=== PATIENT | female | born 1960 | race Caucasian/White ===

== ENCOUNTER → 2016-04-15 | Outpatient (REF) | payer OTHER ==
[2016-04-15 11:46] LABS: BASO % 0.3 % (0.0-1.0); EOS # 0.1 K/mm3 (0.0-0.50); EOS % 1.5 % (0.0-3.0); LARGE UNSTAINED CELL # 0.1 K/mm3 (0.0-0.4); LARGE UNSTAINED CELL % 2.9 % (0.0-4.0); LYMPH # 1.3 K/mm3 (1.5-4.5); LYMPH % 27.3 % (24.0-44.0); MEAN CORPUSCULAR HGB CONC 34.3 g/dl (32.0-36.5); MEAN CORPUSCULAR VOLUME 93.4 fl (80.0-96.0); MONO # 0.4 K/mm3 (0.0-0.8); MONO % 7.5 % (0.0-5.0); NEUTROPHILS # 2.8 K/mm3 (1.8-7.7); NEUTROPHILS % 60.5 % (36.0-66.0); PLATELET COUNT, AUTOMATED 163 k/mm3 (150-450); RED CELL DISTRIBUTION WIDTH 11.6 % (11.5-14.5); WHITE BLOOD COUNT 4.6 K/mm3 (4.0-10.0)
[2016-04-15 12:00] LABS: ALBUMIN/GLOBULIN RATIO 1.08 (1.00-1.93); ALKALINE PHOSPHATASE 56 U/L (45-117); ALT/SGPT 76 U/L (12-78); ANION GAP 9 MEQ/L (8-16); AST/SGOT 54 U/L (15-37); BILIRUBIN,TOTAL 0.5 MG/DL (0.2-1.0); BLOOD UREA NITROGEN 14 MG/DL (7-18); CALCIUM LEVEL 8.9 MG/DL (8.5-10.1); CARBON DIOXIDE LEVEL 27 MEQ/L (21-32); CHLORIDE LEVEL 106 MEQ/L (98-107); CHOLESTEROL LEVEL 158 MG/DL (<200); CREATININE FOR GFR 0.83 MG/DL (0.55-1.02); GLOMERULAR FILTRATION RATE > 60.0 (>51); GLUCOSE, FASTING 86 MG/DL (70-105); POTASSIUM SERUM 4.2 MEQ/L (3.5-5.1); SODIUM LEVEL 142 MEQ/L (136-145); TOTAL PROTEIN 7.7 GM/DL (6.4-8.2); TRIGLYCERIDES LEVEL 63 MG/DL (<150)
[2016-04-15 12:06] LABS: HEPATITIS B SURFACE ANTIBODY NEGATIVE (POSITIVE)
[2016-04-17 08:07] LABS: ALT 75 IU/L (0-40); GGT 104 IU/L (0-60); HAPTOGLOBIN 74 mg/dL (34-200); NECROINFLAM SCORE 0.54 (0.00-0.17); NECROINFLAMM GRADE A2-Moderate activity (.); TOTAL BILIRUBIN 0.4 mg/dL (0.0-1.2)
[2016-04-18 00:06] LABS: HEPATITIS C QUANTITATION 5324780 IU/mL (.); HEPATITIS C VIRUS GENOTYPE 1b (.)
== END ==
LOC: M SFHCPLAZ 09:38
PROVIDERS: ATTEND Internal Medicine Infectious Disease
DX: Z13.220 Encounter for screening for lipoid disorders (principal); B18.2 Chronic viral hepatitis C

== ENCOUNTER 2016-05-08 23:32 | Emergency (ER) | payer OTHER ==
[2016-05-09] MEDS ORDERED: ONDANSETRON 4MG/2ML VIAL (J2405) As Ordered ONE (00:21)
[2016-05-09] MEDS ORDERED: MORPHINE 4 MG/ML 1ML SYRINGE As Ordered ONE ×2 (00:21→01:47)
[2016-05-09] MEDS ORDERED: KETAMINE HCL 200 MG/20 ML VIAL As Ordered ONE (01:18)
[2016-05-09] MEDS ORDERED: PROPOFOL 200 MG/20 ML VIAL As Ordered ONE (01:18)
[2016-05-09] MEDS ORDERED: NORCO 5/325MG TABLET (BULK) As Ordered ONE (02:50)
--- NOTE | 2016-05-09 02:59 | EDDOCDS ---
Nurse's Notes [facility] Name: Vivek Galdamez Age: 55 yrs Sex: Female : 1960 Arrival Date: 05/08/2016 Time: 23:32 Bed 1 Private MD: Diagnosis: Dislocation and sprain of joints and ligaments of elbow;Fracture of head of radius Presentation: 05/08 23:37 Presenting complaint: Patient states: Patient was at bar, had a couple of drinks, on jmb way home, fell hit left elbow. Patient reports that she had three glasses of vodka. Refused pain medication x 3. Adult Sepsis Screening: The patient does not have new or worsening altered mentation. Patient's respiratory rate is less than 22. Systolic blood pressure is greater than 100. Patient has a qSOFA score of 0- Negative Sepsis Screen. Suicide/Homicide risk assessment- the patient denies having any suicidal and/or homicidal ideations and does not present with any other emotional, behavioral or mental health complaints. Status: Patient is not a director of tax services or dependent. Transition of care: patient was not received from another setting of care. 23:37 Acuity: ZHANG Level 3 [facility] 23:37 Method Of Arrival: Ambulance [facility] Triage Assessment: 23:41 General: Appears uncomfortable, Behavior is restless. Pain: Location: left arm Pain [facility] currently is 7 out of 10 on a pain scale. HIV screening NA for this visit Offered previously. Neurological: Level of Consciousness is awake, alert, obeys commands, Oriented to person, place, time, Speech is normal, Facial symmetry appears normal, Facial symmetry: tongue is midline. Cardiovascular: Capillary refill < 3 seconds Heart tones S1 S2 present Pulses are all present. Rhythm is regular. Respiratory: Airway is patent Respiratory effort is even, unlabored, Respiratory pattern is regular, Breath sounds are clear bilaterally. GI: Abdomen is non- distended. Derm: Skin is pink, warm & dry. Musculoskeletal: Range of motion limited in left shoulder, left elbow and left wrist. Historical: - Allergies: No known drug Allergies; - Home Meds: 1. Zoloft 50 mg Oral tab 1 tab once daily 2. Wellbutrin Unknown Oral 3. Klonopin 0.5 mg Oral tab 1 tab 2 times per day - PMHx: Depression; Anxiety; - PSHx: none; - Social history: Smoking status: Patient states former smoker of tobacco. Patient uses alcohol patient/guardian reports recent binge of alcohol consumption. No barriers to communication noted, The patient speaks fluent Swazi, Speaks appropriately for age. - Family history: Not pertinent. - : The pt / caregiver states he / she is not on anticoagulants. Home medication list is obtained from the patient. - Exposure Risk Screening:: None identified. Screenin/18 00:40 Screening information is obtained from the patient. Fall risk: At risk due to apparent jmb chemical impairment. Assistance ADL's: requires no assistance with activities of daily living. Abuse/DV Screen: The patient / caregiver reports he/she is: not in a situation that causes fear, pain or injury. Nutritional screening: No deficits noted. home support is adequate. 02:20 Advance Directives: Currently, there is no health care proxy. There is no active DNR jmb order. There is no living will. There is no Power of Director Of Marketing Analytics. Assessment: 00:40 General: Appears uncomfortable, Behavior is appropriate for age, cooperative. Pain: jmb Location: left wrist and left elbow and left shoulder and left arm Pain currently is 8 out of 10 on a pain scale. Neurological: Level of Consciousness is awake, alert, obeys commands, Oriented to person, place, time, Speech is normal, Facial symmetry appears normal, Facial symmetry: tongue is midline. Cardiovascular: Capillary refill < 3 seconds Heart tones present. Respiratory: Airway is patent Respiratory effort is even, unlabored, Respiratory pattern is regular, symmetrical, Breath sounds are clear bilaterally. GI: Abdomen is non- distended Bowel sounds present X 4 quads. Abd is soft and non tender X 4 quads. Derm: Skin is pink, warm & dry. Musculoskeletal: Range of motion intact in all extremities. 01:49 General: Appears uncomfortable, Behavior is appropriate for age, cooperative, Patient jmb medicated with morphine per Dr. Shore's order. Patient sedation complete. Patient more arousable, able to make needs known. Respirations easy, non labored. Vital signs stable. . Neurological: Level of Consciousness is awake, alert, obeys commands, Oriented to person, place, time, Speech is normal, Facial symmetry appears normal, Facial symmetry: tongue is midline. Respiratory: Airway is patent Respiratory effort is even, unlabored, Respiratory pattern is regular, symmetrical. 02:25 General: Appears in no apparent distress, comfortable, Behavior is appropriate for age, jmb cooperative, Patient awake, laying on stretcher. Appears comfortable. NO voiced complaints at this time. . Neurological: Level of Consciousness is awake, alert, obeys commands, Oriented to person, place, time. Respiratory: Airway is patent Respiratory effort is even, unlabored, Respiratory pattern is regular, symmetrical. 02:56 General: Patient instructed on discharge instructions. Patient asked if there were any [facility] questions regarding discharge, patient stated no. IV discontinued per hospital policy. Patient signed discharge instructions. Patient discharged in stable condition. . Vital Signs: 05/08 23:50 BP 108 / 78; Pulse 68; Resp 22; Temp 99.3(O); Pulse Ox 100% on R/A; Pain /10; jmb 05/09 01:09 Weight 45.81 kg (R); Height 5 ft. 4 in. (162.56 cm) (R); jmb 01:09 Weight 45.81 kg (R); mlc 01:15 BP 117 / 87 (auto/); jmb 01:16 Pulse 84 MON; jmb 01:20 BP 122 / 86 (auto/); jmb 01:20 Pulse 81 MON; Pulse Ox 100% ; jmb 01:25 BP 122 / 88 (auto/); jmb 01:25 Pulse 81 MON; Pulse Ox 100% ; jmb 01:30 BP 144 / 90 (auto/); jmb 01:30 Pulse 72 MON; Pulse Ox 97% ; jmb 01:35 BP 146 / 87 (auto/); jmb 01:35 Pulse 77 MON; Pulse Ox 100% ; jmb 01:40 BP 143 / 91 (auto/); jmb 01:40 Pulse 75 MON; Pulse Ox 100% ; jmb 01:45 BP 138 / 92 (auto/); jmb 01:45 Pulse 83 MON; Pulse Ox 100% ; jmb 01:50 BP 134 / 86 (auto/); jmb 01:50 Pulse 83 MON; Pulse Ox 100% ; jmb 01:55 BP 124 / 88 (auto/); jmb 01:55 Pulse 85 MON; Pulse Ox 100% ; jmb 02:00 BP 123 / 84 (auto/); jmb 02:00 Pulse 85 MON; Pulse Ox 100% ; jmb 02:05 BP 123 / 88 (auto/); jmb 02:05 Pulse 82 MON; Pulse Ox 100% ; jmb 02:10 BP 125 / 90 (auto/); jmb 02:10 Pulse 82 MON; Pulse Ox 100% ; jmb 02:15 BP 125 / 91 (auto/); jmb 02:15 Pulse 87 MON; Pulse Ox 100% ; jmb 02:20 BP 133 / 95 (auto/); jmb 02:20 Pulse 84 MON; Resp 18; Temp 98.2(O); Pulse Ox 100% ; Pain 3/10; jmb 01:09 Body Mass Index 17.34 (45.81 kg, 162.56 cm) mlc Vitals: 05/08 23:41 Log In Time N/A - ambulance arrival. [facility] ED Course: 23:33 Patient visited by Whitney Lewis, Forensic Accountant. ml3 23:33 Patient moved to Waiting ml3 23:33 Patient moved to 5 ml3 23:39 Triage Initiated jmb 23:43 Patient visited by Antoni Celeste RN. jmb 23:48 Johan Shore DO is Attending Physician. mm11 23:48 Patient visited by Johan Shore DO. mm11 05/09 00:04 Patient visited by Johan Shore DO. mm11 00:40 The patient / caregiver is instructed regarding the plan of care and ED course. jmb 00:40 Inserted saline lock: 22 gauge in right forearm. jmb 00:41 Patient visited by Antoni Celeste RN. jmb 00:48 Patient moved to 1 ml3 00:49 ETOH Sent. jmb 01:23 Assist provider with reduction. jmb 01:33 Patient visited by Johan Shore DO. mm11 01:51 Patient visited by Antoni Celeste RN. jmb 02:20 Discontinued lock intact, bleeding controlled, pressure dressing applied, No jmb redness/swelling at site. 02:21 Patient name changed from Loralyn\S\\S\Mccammack\S\ to Loralyn\S\Louann\S\Mccammack. EDMS 02:22 [facility] Payment Agreement was scanned into [employer] and attached to record. [facility] 02:26 Patient visited by Antoni Celeste RN. kulwinder 02:49 [facility] is Referral Physician. mm11 M. Sedation: 01:19 Pre-procedure: Name of procedure: left elbow reduction Monitoring RN: Antoni miramontes supervisor securities vault on. Pulse ox on. Oxygen via nasal cannula \T\ 4L/min 01:23 Q 5 minute assessment Level of Consciousness: Drowsy Color: [place] Skin: Warm / Dry jmshelby 01:23 Pre-procedure: The provider performing the procedure is Johan Shore DO Cardiac kulwinder rhythm Sinus rhythm 01:23 Post-procedure: Procedure ended at 01:26 the total procedure time was less than 30 minutes. 01:23 Post-procedure: Patient more awake and alert. Vital signs remain stable. kulwinder 01:24 Intra-procedure: Patient sedated, not responding to name jmb 01:25 Intra-procedure: Procedure began at 01:23 Patient response: remains sedated, skin jmb warm/dry, moaning, resps even/unlabored, IV patent. 01:25 Intra-procedure: 1st attempt at reduction, patient moaning slightly jmb 01:26 Intra-procedure: 2nd attempt successful, positive pulses, positive capillary refill. kulwinder Patient remains sedated. 01:35 Pre-procedure: Other Staff: Tatyana Zuñiga RN, Dennise Solis Respiratory Therapist, Dr. kulwinder Shore Reviewed instructions and expectations with patient, Has had drug/anesthesia reactions to none that was expressed when asked Reviewed patient's current meds list. 01:35 Q 5 minute assessment 01:42 Post-procedure: Sling applied to patient's left arm, patient alert and oriented x 3. kulwinder Vital signs remains stable. 01:43 Post-procedure: Patient talkative, happy that her elbow is intact. Patient explained kulwinder that it took only three minutes to perform. Patient answers questions without difficulty. Significant other brought back in room. 02:57 See Trend VS jillb Administered Medications: 00:34 Drug: morphine 4 mg [morphine 4 mg/mL intravenous cartridge (1 mL)] Route: IVP; Site: jmb right forearm; 00:34 Drug: Ondansetron 4 mg [ondansetron HCl 2 mg/mL intravenous solution (2 mL)] Route: jmb IVP; Site: right forearm; 01:12 Drug: NS 0.9% 1000 ml [sodium chloride 0.9 % intravenous solution] Route: IV; Rate: 100 jmb mL/hr; Site: right forearm; 01:23 Drug: Ketamine (1mg/kg - Peds initial dose) 45 mg [ketamine 10 mg/mL injection solution jmb (4.5 mL)] {Note: administered by Dr. Shore.} Route: IVP; Site: right forearm; 01:24 Drug: Propofol (PF)(Moderate Sedation, 0.5mg/kg) 20 mg [propofol (PF) 200 mg/20 mL (10 jmb mg/mL) intravenous emulsion (2 mL)] {Note: administered by Dr. Shore.} Route: IVP; Site: right forearm; 01:49 Drug: morphine 4 mg [morphine 4 mg/mL intravenous cartridge (1 mL)] Route: IVP; Site: jmb right forearm; 02:55 Drug: HYDROcodone-acetaminophen 4 pack- 1 packets [hydrocodone 5 mg-acetaminophen 325 jmb mg tablet (1 tabs)] {Co-Signature: [email or web address] (Stephanie Hayes RN).} Route: PO; RT: 01:40 Sedation Time: 20Minutes. Respiratory: Airway is patent Respiratory effort is even, nk1 unlabored, Respiratory pattern is regular symmetrical, Called to ED for conscious sedation, Waveform capnography established and monitored, Pt on 4l on by cannula. tolerated procedure well without respiratory compromise, some shallow respirations. Pt resumed acceptable respiratory pattern, awake and answering questions. Order Results: Lab Order: ETOH; SPEC'M 05/09/16 00:47 Test: ETHYL ALCOHOL (ETHANOL); Value: 0.136; Range: 0.000-0.010; Abnormal: Above high normal; Units: %; Status: F Outcome: 02:20 Discharge Assessment: Patient awake, alert and oriented x 3. No cognitive and/or jmb functional deficits noted. Patient verbalized understanding of disposition instructions. Patient awake and alert. obeys commands, Oriented to person, place and time. Patient verbalized understanding of disposition instructions. Patient has no functional deficits. patient administered narcotics - yes. Pt provided with safe discharge. The following High Risk Discharge criteria are identified: None. Discharged to home ambulatory, with significant other. Condition: stable Condition: improved. Discharge instructions given to patient, Instructed on discharge instructions, follow up and referral plans. medication usage, Demonstrated understanding of instructions, medications, Pt was receptive of discharge instructions/ teaching. Prescriptions given X 1. No special radiology studies were completed. Property sent home with patient. 02:50 Discharge ordered by Provider. mm11 02:58 Patient left the ED. kulwinder Signatures: Dispatcher [employer] EDMS Whitney Lewis, Forensic Accountant Unit ml3 Dennise Solis,RT RT nk1 Johan Shore, DO DO mm11 Antoni Celeste,RN RN Tatyana Webb,RN RN Jennifer Maloney RN ko2 Corrections: (The following items were deleted from the chart) 02:57 02:20 Pulse 84bpm; Monitor; Pulse Ox 100%; kulwinder miramontes MTDD
--- NOTE | 2016-05-09 02:59 | EDDOCDS ---
Physician Documentation [facility] Name: Vivek Galdamez Age: 55 yrs Sex: Female : 1960 Arrival Date: 05/08/2016 Time: 23:32 Bed 1 Private MD: Disposition: 05/09/16 02:50 Discharged to Home/Self Care. Impression: Dislocation and sprain of joints and ligaments of elbow, Fracture of head of radius. - Condition is Stable. - Discharge Instructions: Elbow Dislocation, Radial Head Fracture, Arm Sling Use, [id number], Elbow Dislocation, [id number], Radial Head Fracture, [id number]-[id number]. - Prescriptions for [place] 5- 325 mg Oral Tablet - take 1 tablet by ORAL route every 6 hours As needed MDD: 4 tabs; 20 tablet. - Medication Reconciliation, Local Pharmacy [facility], [facility] Followup form. - Follow up: [facility]; When: Call to arrange an appointment; Reason: Continuance of care. - Problem is an acute exacerbation. - Symptoms have improved. Historical: - Allergies: No known drug Allergies; - Home Meds: 1. Zoloft 50 mg Oral tab 1 tab once daily 2. Wellbutrin Unknown Oral 3. Klonopin 0.5 mg Oral tab 1 tab 2 times per day - PMHx: Depression; Anxiety; - PSHx: none; - Social history: Smoking status: Patient states former smoker of tobacco. Patient uses alcohol patient/guardian reports recent binge of alcohol consumption. No barriers to communication noted, The patient speaks fluent Romansh, Speaks appropriately for age. - Family history: Not pertinent. - : The pt / caregiver states he / she is not on anticoagulants. Home medication list is obtained from the patient. - Exposure Risk Screening:: None identified. Vital Signs: 05/08 23:50 BP 108 / 78; Pulse 68; Resp 22; Temp 99.3(O); Pulse Ox 100% on R/A; Pain 7/10; jmb 05/09 01:09 Weight 45.81 kg / 100.99 lbs (R); Height 5 ft. 4 in. (162.56 cm) (R); jmb 01:09 Weight 45.81 kg / 100.99 lbs (R); [facility] 01:15 BP 117 / 87 (auto/); jmb 01:16 Pulse 84 MON; jmb 01:20 BP 122 / 86 (auto/); jmb 01:20 Pulse 81 MON; Pulse Ox 100% ; jmb 01:25 BP 122 / 88 (auto/); jmb 01:25 Pulse 81 MON; Pulse Ox 100% ; jmb 01:30 BP 144 / 90 (auto/); jmb 01:30 Pulse 72 MON; Pulse Ox 97% ; jmb 01:35 BP 146 / 87 (auto/); jmb 01:35 Pulse 77 MON; Pulse Ox 100% ; jmb 01:40 BP 143 / 91 (auto/); jmb 01:40 Pulse 75 MON; Pulse Ox 100% ; jmb 01:45 BP 138 / 92 (auto/); jmb 01:45 Pulse 83 MON; Pulse Ox 100% ; jmb 01:50 BP 134 / 86 (auto/); jmb 01:50 Pulse 83 MON; Pulse Ox 100% ; jmb 01:55 BP 124 / 88 (auto/); jmb 01:55 Pulse 85 MON; Pulse Ox 100% ; jmb 02:00 BP 123 / 84 (auto/); jmb 02:00 Pulse 85 MON; Pulse Ox 100% ; jmb 02:05 BP 123 / 88 (auto/); jmb 02:05 Pulse 82 MON; Pulse Ox 100% ; jmb 02:10 BP 125 / 90 (auto/); jmb 02:10 Pulse 82 MON; Pulse Ox 100% ; jmb 02:15 BP 125 / 91 (auto/); jmb 02:15 Pulse 87 MON; Pulse Ox 100% ; jmb 02:20 BP 133 / 95 (auto/); jmb 02:20 Pulse 84 MON; Resp 18; Temp 98.2(O); Pulse Ox 100% ; Pain 3/10; jmb 01:09 Body Mass Index 17.34 (45.81 kg, 162.56 cm) mlc Procedures: 01:33 Moderate sedation: Pre-procedure assessment: the patient has been NPO 3 hour(s) prior mm11 to arrival, ASA physical classification: I - healthy, no underlying organic disease, Airway assessment: able to hyperextend neck, able to maintain airway, can open mouth without difficulty, Mallampati classification of tongue size: II - faucial pillars and soft palate can be visualized, but uvula is masked by the base of the tongue, Monitoring during procedure: nurse at bedside at all times, cardiac technologist, continuous pulse oximetry, End Tidal CO2 Medications employed: Ketamine, 45 mg(s), Propofol _ mg? 20 mgs. Post-procedure assessment: the patient is moderately sedated, Complications: none. Total time spent by provider performing sedation 15 minutes. 01:37 Fracture care/splinting:. Joint Reduction: of the left elbow, using traction, mm11 Immobilized with orthoglass posterior splint. Patient tolerated well. Post reduction film - reveals normal alignment. MDM: 00:05 IV Saline Lock ordered. mm11 00:05 morphine 4 mg IVP every 30 minutes; Document pain score/vitals after each dose (Hold if mm11 SBP < 90mmHg) x2 ordered. 00:05 Ondansetron 4 mg IVP once ordered. mm11 00:05 ETOH Ordered. EDMS 00:07 Elbow, (AP\E\Lat) Ordered. EDMS 01:04 NS 0.9% 1000 ml IV at 100 mL/hr continuous ordered. mm11 01:04 Call Respiratory ordered. mm11 01:04 Airway Cart to bedside ordered. mm11 01:04 Continuous Roofing Supervisor and SaO2 with q 5 minute VS during procedure ordered. mm11 01:04 Initiate continuous wave form capnography monitoring ordered. mm11 01:04 Oxygen at 4L/Min NC or Home dosage ordered. mm11 01:04 Call Respiratory complete. [facility] 01:06 Financial registration complete. hs2 01:14 Ketamine (1mg/kg - Peds initial dose) 45 mg IVP once ordered. mm11 01:14 Propofol (PF)(Moderate Sedation, 0.5mg/kg) 20 mg IVP Per protocol; give every 1-2 mm11 minutes until desired level of sedation ordered. 01:17 ETOH Reviewed. mm11 01:30 Elbow, (AP\E\Lat) Ordered. EDMS 02:22 [facility] Payment Agreement was scanned into [employer] and attached to record. [facility] 02:48 HYDROcodone-acetaminophen 4 pack- 5 mg-325 mg 1 packets PO Per package directions; mm11 Dispense with patient. 1 po q4h prn for pain ordered. Administered Medications: 00:34 Drug: morphine 4 mg [morphine 4 mg/mL intravenous cartridge (1 mL)] Route: IVP; Site: jmb right forearm; 00:34 Drug: Ondansetron 4 mg [ondansetron HCl 2 mg/mL intravenous solution (2 mL)] Route: jmb IVP; Site: right forearm; 01:12 Drug: NS 0.9% 1000 ml [sodium chloride 0.9 % intravenous solution] Route: IV; Rate: 100 jmb mL/hr; Site: right forearm; 01:23 Drug: Ketamine (1mg/kg - Peds initial dose) 45 mg [ketamine 10 mg/mL injection solution jmb (4.5 mL)] {Note: administered by Dr. Shore.} Route: IVP; Site: right forearm; 01:24 Drug: Propofol (PF)(Moderate Sedation, 0.5mg/kg) 20 mg [propofol (PF) 200 mg/20 mL (10 jmb mg/mL) intravenous emulsion (2 mL)] {Note: administered by Dr. Shore.} Route: IVP; Site: right forearm; 01:49 Drug: morphine 4 mg [morphine 4 mg/mL intravenous cartridge (1 mL)] Route: IVP; Site: b right forearm; 02:55 Drug: HYDROcodone-acetaminophen 4 pack- 1 packets [hydrocodone 5 mg-acetaminophen 325 jmb mg tablet (1 tabs)] {Co-Signature: [email or web address] (Stephanie Hayes RN).} Route: PO; Signatures: Dispatcher [employer] Johan Peterson, DO mm11 Antoni Celeste,Jennifer Maldonado RN [facility] Jessika Mata, Reg Reg hs2 Stephanie Hayes RN ko2 The chart was reviewed and I authenticate all verbal orders and agree with the evaluation and treatment provided.Attachments: 02:22 [facility] Payment Agreement [facility]
--- NOTE | 2016-05-09 08:15 | REP ---
Clinical: Trauma. Technique: AP, lateral, oblique views of the left elbow. Findings: Fracture dislocation is appreciated with overlying soft tissue swelling. No subcutaneous emphysema or radiodense foreign body. Impression: Fracture dislocation at the elbow. Signed by Johan Blanton MD 05/09/2016 08:07 A
--- NOTE | 2016-05-09 08:23 | REP ---
Clinical: Status post reduction. Technique: Single portable lateral view of the left elbow. Findings: The elbow now demonstrates satisfactory reduction. Small anterior and likely posterior fracture fragments are identified. Impression: Status post reduction. Small fracture fragments noted. Signed by Johan Blanton MD 05/09/2016 08:15 A
--- NOTE | 2016-05-11 04:00 | EDDOCDS ---
Nurse's Notes [facility] Name: Vivek Galdamez Age: 55 yrs Sex: Female : 1960 Arrival Date: 05/08/2016 Time: 23:32 Bed 1 Private MD: Diagnosis: Dislocation and sprain of joints and ligaments of elbow;Fracture of head of radius Presentation: 05/08 23:37 Presenting complaint: Patient states: Patient was at bar, had a couple of drinks, on jmb way home, fell hit left elbow. Patient reports that she had three glasses of vodka. Refused pain medication x 3. Adult Sepsis Screening: The patient does not have new or worsening altered mentation. Patient's respiratory rate is less than 22. Systolic blood pressure is greater than 100. Patient has a qSOFA score of 0- Negative Sepsis Screen. Suicide/Homicide risk assessment- the patient denies having any suicidal and/or homicidal ideations and does not present with any other emotional, behavioral or mental health complaints. 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 Transition of care: patient was not received from another setting of care. 23:37 Acuity: ZHANG Level 3 [facility] 23:37 Method Of Arrival: Ambulance [facility] Triage Assessment: 23:41 General: Appears uncomfortable, Behavior is restless. Pain: Location: left arm Pain [facility] currently is 7 out of 10 on a pain scale. HIV screening NA for this visit Offered previously. Neurological: Level of Consciousness is awake, alert, obeys commands, Oriented to person, place, time, Speech is normal, Facial symmetry appears normal, Facial symmetry: tongue is midline. Cardiovascular: Capillary refill < 3 seconds Heart tones S1 S2 present Pulses are all present. Rhythm is regular. Respiratory: Airway is patent Respiratory effort is even, unlabored, Respiratory pattern is regular, Breath sounds are clear bilaterally. GI: Abdomen is non- distended. Derm: Skin is pink, warm & dry. Musculoskeletal: Range of motion limited in left shoulder, left elbow and left wrist. Historical: - Allergies: No known drug Allergies; - Home Meds: 1. Zoloft 50 mg Oral tab 1 tab once daily 2. Wellbutrin Unknown Oral 3. Klonopin 0.5 mg Oral tab 1 tab 2 times per day - PMHx: Depression; Anxiety; - PSHx: none; - Social history: Smoking status: Patient states former smoker of tobacco. Patient uses alcohol patient/guardian reports recent binge of alcohol consumption. No barriers to communication noted, The patient speaks fluent Pakistani, Speaks appropriately for age. - Family history: Not pertinent. - : The pt / caregiver states he / she is not on anticoagulants. Home medication list is obtained from the patient. - Exposure Risk Screening:: None identified. Screenin/18 00:40 Screening information is obtained from the patient. Fall risk: At risk due to apparent jmb chemical impairment. Assistance ADL's: requires no assistance with activities of daily living. Abuse/DV Screen: The patient / caregiver reports he/she is: not in a situation that causes fear, pain or injury. Nutritional screening: No deficits noted. home support is adequate. 02:20 Advance Directives: Currently, there is no health care proxy. There is no active DNR jmb order. There is no living will. There is no Power of Upholstery Cleaner. Assessment: 00:40 General: Appears uncomfortable, Behavior is appropriate for age, cooperative. Pain: jmb Location: left wrist and left elbow and left shoulder and left arm Pain currently is 8 out of 10 on a pain scale. Neurological: Level of Consciousness is awake, alert, obeys commands, Oriented to person, place, time, Speech is normal, Facial symmetry appears normal, Facial symmetry: tongue is midline. Cardiovascular: Capillary refill < 3 seconds Heart tones present. Respiratory: Airway is patent Respiratory effort is even, unlabored, Respiratory pattern is regular, symmetrical, Breath sounds are clear bilaterally. GI: Abdomen is non- distended Bowel sounds present X 4 quads. Abd is soft and non tender X 4 quads. Derm: Skin is pink, warm & dry. Musculoskeletal: Range of motion intact in all extremities. 01:49 General: Appears uncomfortable, Behavior is appropriate for age, cooperative, Patient jmb medicated with morphine per Dr. Shore's order. Patient sedation complete. Patient more arousable, able to make needs known. Respirations easy, non labored. Vital signs stable. . Neurological: Level of Consciousness is awake, alert, obeys commands, Oriented to person, place, time, Speech is normal, Facial symmetry appears normal, Facial symmetry: tongue is midline. Respiratory: Airway is patent Respiratory effort is even, unlabored, Respiratory pattern is regular, symmetrical. 02:25 General: Appears in no apparent distress, comfortable, Behavior is appropriate for age, jmb cooperative, Patient awake, laying on stretcher. Appears comfortable. NO voiced complaints at this time. . Neurological: Level of Consciousness is awake, alert, obeys commands, Oriented to person, place, time. Respiratory: Airway is patent Respiratory effort is even, unlabored, Respiratory pattern is regular, symmetrical. 02:56 General: Patient instructed on discharge instructions. Patient asked if there were any [facility] questions regarding discharge, patient stated no. IV discontinued per hospital policy. Patient signed discharge instructions. Patient discharged in stable condition. . Vital Signs: 05/08 23:50 BP 108 / 78; Pulse 68; Resp 22; Temp 99.3(O); Pulse Ox 100% on R/A; Pain /10; jmb 05/09 01:09 Weight 45.81 kg (R); Height 5 ft. 4 in. (162.56 cm) (R); jmb 01:09 Weight 45.81 kg (R); mlc 01:15 BP 117 / 87 (auto/); jmb 01:16 Pulse 84 MON; jmb 01:20 BP 122 / 86 (auto/); jmb 01:20 Pulse 81 MON; Pulse Ox 100% ; jmb 01:25 BP 122 / 88 (auto/); jmb 01:25 Pulse 81 MON; Pulse Ox 100% ; jmb 01:30 BP 144 / 90 (auto/); jmb 01:30 Pulse 72 MON; Pulse Ox 97% ; jmb 01:35 BP 146 / 87 (auto/); jmb 01:35 Pulse 77 MON; Pulse Ox 100% ; jmb 01:40 BP 143 / 91 (auto/); jmb 01:40 Pulse 75 MON; Pulse Ox 100% ; jmb 01:45 BP 138 / 92 (auto/); jmb 01:45 Pulse 83 MON; Pulse Ox 100% ; jmb 01:50 BP 134 / 86 (auto/); jmb 01:50 Pulse 83 MON; Pulse Ox 100% ; jmb 01:55 BP 124 / 88 (auto/); jmb 01:55 Pulse 85 MON; Pulse Ox 100% ; jmb 02:00 BP 123 / 84 (auto/); jmb 02:00 Pulse 85 MON; Pulse Ox 100% ; jmb 02:05 BP 123 / 88 (auto/); jmb 02:05 Pulse 82 MON; Pulse Ox 100% ; jmb 02:10 BP 125 / 90 (auto/); jmb 02:10 Pulse 82 MON; Pulse Ox 100% ; jmb 02:15 BP 125 / 91 (auto/); jmb 02:15 Pulse 87 MON; Pulse Ox 100% ; jmb 02:20 BP 133 / 95 (auto/); jmb 02:20 Pulse 84 MON; Resp 18; Temp 98.2(O); Pulse Ox 100% ; Pain 3/10; jmb 01:09 Body Mass Index 17.34 (45.81 kg, 162.56 cm) mlc Vitals: 05/08 23:41 Log In Time N/A - ambulance arrival. [facility] ED Course: 23:33 Patient visited by Whitney Lewis, Corrugated Box Machine Operator. ml3 23:33 Patient moved to Waiting ml3 23:33 Patient moved to 5 ml3 23:39 Triage Initiated jmb 23:43 Patient visited by Antoni Celeste RN. jmb 23:48 Johan Shore DO is Attending Physician. mm11 23:48 Patient visited by Johan Shore DO. mm11 05/09 00:04 Patient visited by Johan Shore DO. mm11 00:40 The patient / caregiver is instructed regarding the plan of care and ED course. jmb 00:40 Inserted saline lock: 22 gauge in right forearm. jmb 00:41 Patient visited by Antoni Celeste RN. jmb 00:48 Patient moved to 1 ml3 00:49 ETOH Sent. jmb 01:23 Assist provider with reduction. jmb 01:33 Patient visited by Johan Shore DO. mm11 01:51 Patient visited by Antoni Celeste RN. jmb 02:20 Discontinued lock intact, bleeding controlled, pressure dressing applied, No jmb redness/swelling at site. 02:21 Patient name changed from Loralyn\S\\S\Mccammack\S\ to Loralyn\S\Louann\S\Mccammack. EDMS 02:22 [facility] Payment Agreement was scanned into [employer] and attached to record. [facility] 02:26 Patient visited by Antoni Celeste RN. jmshelby 02:49 [facility] is Referral Physician. mm11 08:45 Elbow, (AP\E\Lat) Returned. EDMS 08:46 Elbow, (AP\E\Lat) Returned. EDMS 08:49 PCR was scanned into [employer] and attached to record. gb 10:46 T-Sheet-- Draft Copy was scanned into [employer] and attached to record. gb 10:46 [place] Protocol was scanned into [employer] and attached to record. gb 10:47 Consents was scanned into [employer] and attached to record. gb M. Sedation: 01:19 Pre-procedure: Name of procedure: left elbow reduction Monitoring RN: Antoni miramontes gold reclaimer on. Pulse ox on. Oxygen via nasal cannula \T\ 4L/min 01:23 Q 5 minute assessment Level of Consciousness: Drowsy Color: [place] Skin: Warm / Dry jmshelby 01:23 Pre-procedure: The provider performing the procedure is Johan Shore DO Cardiac kulwinder rhythm Sinus rhythm 01:23 Post-procedure: Procedure ended at 01:26 the total procedure time was less than 30 minutes. 01:23 Post-procedure: Patient more awake and alert. Vital signs remain stable. jmb 01:24 Intra-procedure: Patient sedated, not responding to name b 01:25 Intra-procedure: Procedure began at 01:23 Patient response: remains sedated, skin jmb warm/dry, moaning, resps even/unlabored, IV patent. 01:25 Intra-procedure: 1st attempt at reduction, patient moaning slightly b 01:26 Intra-procedure: 2nd attempt successful, positive pulses, positive capillary refill. jmb Patient remains sedated. 01:35 Pre-procedure: Other Staff: Tatyana Zuñiga RN, Dennise Solis Respiratory Therapist, Dr. kulwinder Shore Reviewed instructions and expectations with patient, Has had drug/anesthesia reactions to none that was expressed when asked Reviewed patient's current meds list. 01:35 Q 5 minute assessment 01:42 Post-procedure: Sling applied to patient's left arm, patient alert and oriented x 3. kulwinder Vital signs remains stable. 01:43 Post-procedure: Patient talkative, happy that her elbow is intact. Patient explained kulwinder that it took only three minutes to perform. Patient answers questions without difficulty. Significant other brought back in room. 02:57 See Trend VS jmb Administered Medications: 00:34 Drug: morphine 4 mg [morphine 4 mg/mL intravenous cartridge (1 mL)] Route: IVP; Site: b right forearm; 00:34 Drug: Ondansetron 4 mg [ondansetron HCl 2 mg/mL intravenous solution (2 mL)] Route: jmb IVP; Site: right forearm; 01:12 Drug: NS 0.9% 1000 ml [sodium chloride 0.9 % intravenous solution] Route: IV; Rate: 100 jmb mL/hr; Site: right forearm; 01:23 Drug: Ketamine (1mg/kg - Peds initial dose) 45 mg [ketamine 10 mg/mL injection solution jmb (4.5 mL)] {Note: administered by Dr. Shore.} Route: IVP; Site: right forearm; 01:24 Drug: Propofol (PF)(Moderate Sedation, 0.5mg/kg) 20 mg [propofol (PF) 200 mg/20 mL (10 jmb mg/mL) intravenous emulsion (2 mL)] {Note: administered by Dr. Shore.} Route: IVP; Site: right forearm; 01:49 Drug: morphine 4 mg [morphine 4 mg/mL intravenous cartridge (1 mL)] Route: IVP; Site: [facility] right forearm; 02:55 Drug: HYDROcodone-acetaminophen 4 pack- 1 packets [hydrocodone 5 mg-acetaminophen 325 jmb mg tablet (1 tabs)] {Co-Signature: ko2 (Stephanie Hayes RN).} Route: PO; Attachments: 10:46 [place] Protocol gb 10:47 Consents gb RT: 01:40 Sedation Time: 20Minutes. Respiratory: Airway is patent Respiratory effort is even, nk1 unlabored, Respiratory pattern is regular symmetrical, Called to ED for conscious sedation, Waveform capnography established and monitored, Pt on 4l on by cannula. tolerated procedure well without respiratory compromise, some shallow respirations. Pt resumed acceptable respiratory pattern, awake and answering questions. Order Results: Lab Order: ETOH; SPEC'M 05/09/16 00:47 Test: ETHYL ALCOHOL (ETHANOL); Value: 0.136; Range: 0.000-0.010; Abnormal: Above high normal; Units: %; Status: F Radiology Order: Elbow, (AP\E\Lat) Test: Elbow, (AP\E\Lat) REASON FOR EXAMINATION: Trauma; Clinical: Trauma.; ; Technique: AP, lateral, oblique views of the left elbow.; ; Findings:; Fracture dislocation is appreciated with overlying soft tissue swelling. No; subcutaneous emphysema or radiodense foreign body.; ; Impression:; Fracture dislocation at the elbow.; ; ; Signed by; Johan Blanton MD 05/09/2016 08:07 A; Radiology Order: Elbow, (AP\E\Lat) Test: Elbow, (AP\E\Lat) REASON FOR EXAMINATION: Trauma; Clinical: Status post reduction.; ; Technique: Single portable lateral view of the left elbow.; ; Findings:; The elbow now demonstrates satisfactory reduction. Small anterior and likely; posterior fracture fragments are identified.; ; Impression:; Status post reduction. Small fracture fragments noted.; ; ; Signed by; Johan Blanton MD 05/09/2016 08:15 A; Outcome: 02:20 Discharge Assessment: Patient awake, alert and oriented x 3. No cognitive and/or jmb functional deficits noted. Patient verbalized understanding of disposition instructions. Patient awake and alert. obeys commands, Oriented to person, place and time. Patient verbalized understanding of disposition instructions. Patient has no functional deficits. patient administered narcotics - yes. Pt provided with safe discharge. The following High Risk Discharge criteria are identified: None. Discharged to home ambulatory, with significant other. Condition: stable Condition: improved. Discharge instructions given to patient, Instructed on discharge instructions, follow up and referral plans. medication usage, Demonstrated understanding of instructions, medications, Pt was receptive of discharge instructions/ teaching. Prescriptions given X 1. No special radiology studies were completed. Property sent home with patient. 02:50 Discharge ordered by Provider. mm11 02:58 Patient left the ED. jmb Signatures: Dispatcher [employer] EDMS Renita Barber, Reg Reg Whitney Angel, Corrugated Box Machine Operator Unit ml3 Dennise Solis,RT RT nk1 Johan Shore, DO mm11 Antoni Celeste RN RN jmb Booth, Mandy, RN RN [facility] Jennifer Ordaz [facility] Stephanie Hayes RN ko2 Corrections: (The following items were deleted from the chart) 02:57 02:20 Pulse 84bpm; Monitor; Pulse Ox 100%; jillb kulwinder Chart Complete MTDD
--- NOTE | 2016-05-11 04:00 | EDDOCDS ---
Physician Documentation [facility] Name: Vivek Galdamez Age: 55 yrs Sex: Female : 1960 Arrival Date: 05/08/2016 Time: 23:32 Bed 1 Private MD: Disposition: 05/09/16 02:50 Discharged to Home/Self Care. Impression: Dislocation and sprain of joints and ligaments of elbow, Fracture of head of radius. - Condition is Stable. - Discharge Instructions: Elbow Dislocation, Radial Head Fracture, Arm Sling Use, [id number], Elbow Dislocation, [id number], Radial Head Fracture, [id number]. - Prescriptions for Nathalie 5- 325 mg Oral Tablet - take 1 tablet by ORAL route every 6 hours As needed MDD: 4 tabs; 20 tablet. - Medication Reconciliation, Local Pharmacy [facility], [facility] Followup form. - Follow up: [facility]; When: Call to arrange an appointment; Reason: Continuance of care. - Problem is an acute exacerbation. - Symptoms have improved. Historical: - Allergies: No known drug Allergies; - Home Meds: 1. Zoloft 50 mg Oral tab 1 tab once daily 2. Wellbutrin Unknown Oral 3. Klonopin 0.5 mg Oral tab 1 tab 2 times per day - PMHx: Depression; Anxiety; - PSHx: none; - Social history: Smoking status: Patient states former smoker of tobacco. Patient uses alcohol patient/guardian reports recent binge of alcohol consumption. No barriers to communication noted, The patient speaks fluent Telugu, Speaks appropriately for age. - Family history: Not pertinent. - : The pt / caregiver states he / she is not on anticoagulants. Home medication list is obtained from the patient. - Exposure Risk Screening:: None identified. Vital Signs: 05/08 23:50 BP 108 / 78; Pulse 68; Resp 22; Temp 99.3(O); Pulse Ox 100% on R/A; Pain 7/10; jmb 05/09 01:09 Weight 45.81 kg / 100.99 lbs (R); Height 5 ft. 4 in. (162.56 cm) (R); jmb 01:09 Weight 45.81 kg / 100.99 lbs (R); [facility] [place] BP 117 / 87 (auto/); jmb 01:16 Pulse 84 MON; jmb 01:20 BP 122 / 86 (auto/); jmb 01:20 Pulse 81 MON; Pulse Ox 100% ; jmb 01:25 BP 122 / 88 (auto/); jmb 01:25 Pulse 81 MON; Pulse Ox 100% ; jmb 01:30 BP 144 / 90 (auto/); jmb 01:30 Pulse 72 MON; Pulse Ox 97% ; jmb 01:35 BP 146 / 87 (auto/); jmb 01:35 Pulse 77 MON; Pulse Ox 100% ; jmb 01:40 BP 143 / 91 (auto/); jmb 01:40 Pulse 75 MON; Pulse Ox 100% ; jmb 01:45 BP 138 / 92 (auto/); jmb 01:45 Pulse 83 MON; Pulse Ox 100% ; jmb 01:50 BP 134 / 86 (auto/); jmb 01:50 Pulse 83 MON; Pulse Ox 100% ; jmb 01:55 BP 124 / 88 (auto/); jmb 01:55 Pulse 85 MON; Pulse Ox 100% ; jmb 02:00 BP 123 / 84 (auto/); jmb 02:00 Pulse 85 MON; Pulse Ox 100% ; jmb 02:05 BP 123 / 88 (auto/); jmb 02:05 Pulse 82 MON; Pulse Ox 100% ; jmb 02:10 BP 125 / 90 (auto/); jmb 02:10 Pulse 82 MON; Pulse Ox 100% ; jmb 02:15 BP 125 / 91 (auto/); jmb 02:15 Pulse 87 MON; Pulse Ox 100% ; jmb 02:20 BP 133 / 95 (auto/); jmb 02:20 Pulse 84 MON; Resp 18; Temp 98.2(O); Pulse Ox 100% ; Pain 3/10; jmb 01:09 Body Mass Index 17.34 (45.81 kg, 162.56 cm) mlc Procedures: 01:33 Moderate sedation: Pre-procedure assessment: the patient has been NPO 3 hour(s) prior mm11 to arrival, ASA physical classification: I - healthy, no underlying organic disease, Airway assessment: able to hyperextend neck, able to maintain airway, can open mouth without difficulty, Mallampati classification of tongue size: II - faucial pillars and soft palate can be visualized, but uvula is masked by the base of the tongue, Monitoring during procedure: nurse at bedside at all times, diagnostic cardiac sonographer, continuous pulse oximetry, End Tidal CO2 Medications employed: Ketamine, 45 mg(s), Propofol _ mg? 20 mgs. Post-procedure assessment: the patient is moderately sedated, Complications: none. Total time spent by provider performing sedation 15 minutes. 01:37 Fracture care/splinting:. Joint Reduction: of the left elbow, using traction, mm11 Immobilized with orthoglass posterior splint. Patient tolerated well. Post reduction film - reveals normal alignment. MDM: 00:05 IV Saline Lock ordered. mm11 00:05 morphine 4 mg IVP every 30 minutes; Document pain score/vitals after each dose (Hold if mm11 SBP < 90mmHg) x2 ordered. 00:05 Ondansetron 4 mg IVP once ordered. mm11 00:05 ETOH Ordered. EDMS 00:07 Elbow, (AP\E\Lat) Ordered. EDMS 01:04 NS 0.9% 1000 ml IV at 100 mL/hr continuous ordered. mm11 01:04 Call Respiratory ordered. mm11 01:04 Airway Cart to bedside ordered. mm11 01:04 Continuous Drum Maker and SaO2 with q 5 minute VS during procedure ordered. mm11 01:04 Initiate continuous wave form capnography monitoring ordered. mm11 01:04 Oxygen at 4L/Min NC or Home dosage ordered. mm11 01:04 Call Respiratory complete. jmb 01:06 Financial registration complete. hs2 01:14 Ketamine (1mg/kg - Peds initial dose) 45 mg IVP once ordered. mm11 01:14 Propofol (PF)(Moderate Sedation, 0.5mg/kg) 20 mg IVP Per protocol; give every 1-2 mm11 minutes until desired level of sedation ordered. 01:17 ETOH Reviewed. mm11 01:30 Elbow, (AP\E\Lat) Ordered. EDMS 02:22 [facility] Payment Agreement was scanned into [employer] and attached to record. [facility] 02:48 HYDROcodone-acetaminophen 4 pack- 5 mg-325 mg 1 packets PO Per package directions; mm11 Dispense with patient. 1 po q4h prn for pain ordered. 08:49 PCR was scanned into [employer] and attached to record. gb 10:46 T-Sheet-- Draft Copy was scanned into [employer] and attached to record. 10:46 [place] Protocol was scanned into [employer] and attached to record. 10:47 Consents was scanned into [employer] and attached to record. gb Administered Medications: 00:34 Drug: morphine 4 mg [morphine 4 mg/mL intravenous cartridge (1 mL)] Route: IVP; Site: [facility] right forearm; 00:34 Drug: Ondansetron 4 mg [ondansetron HCl 2 mg/mL intravenous solution (2 mL)] Route: b IVP; Site: right forearm; 01:12 Drug: NS 0.9% 1000 ml [sodium chloride 0.9 % intravenous solution] Route: IV; Rate: 100 jmb mL/hr; Site: right forearm; 01:23 Drug: Ketamine (1mg/kg - Peds initial dose) 45 mg [ketamine 10 mg/mL injection solution jmb (4.5 mL)] {Note: administered by Dr. Shore.} Route: IVP; Site: right forearm; 01:24 Drug: Propofol (PF)(Moderate Sedation, 0.5mg/kg) 20 mg [propofol (PF) 200 mg/20 mL (10 jmb mg/mL) intravenous emulsion (2 mL)] {Note: administered by Dr. Shore.} Route: IVP; Site: right forearm; 01:49 Drug: morphine 4 mg [morphine 4 mg/mL intravenous cartridge (1 mL)] Route: IVP; Site: [facility] right forearm; 02:55 Drug: HYDROcodone-acetaminophen 4 pack- 1 packets [hydrocodone 5 mg-acetaminophen 325 jmb mg tablet (1 tabs)] {Co-Signature: ko2 (Stephanie Hayes RN).} Route: PO; Signatures: Dispatcher [employer] EDMS Renita Barber, Reg Reg gb Johan Shore DO DO mm11 Antoni Celeste RN RN jmb Hook, Sandra [facility] Jessika Mata, Reg Reg hs2 Stephanie Hayes RN ko2 The chart was reviewed and I authenticate all verbal orders and agree with the evaluation and treatment provided.Attachments: 02:22 [facility] Payment Agreement [facility] 10:46 T-Sheet-- Draft Copy Chart Complete MTDD
--- NOTE | 2016-05-11 04:00 | EDDOCDS ---
Physician Documentation [facility] Name: Vivek Galdamez Age: 55 yrs Sex: Female : 1960 Arrival Date: 05/08/2016 Time: 23:32 Bed 1 Private MD: Disposition: 05/09/16 02:50 Discharged to Home/Self Care. Impression: Dislocation and sprain of joints and ligaments of elbow, Fracture of head of radius. - Condition is Stable. - Discharge Instructions: Elbow Dislocation, Radial Head Fracture, Arm Sling Use, [id number], Elbow Dislocation, Gbmx-[id number], Radial Head Fracture, Psik-ef-Rnyd. - Prescriptions for Ashley 5- 325 mg Oral Tablet - take 1 tablet by ORAL route every 6 hours As needed MDD: 4 tabs; 20 tablet. - Medication Reconciliation, Local Pharmacy [facility], [facility] Followup form. - Follow up: [facility]; When: Call to arrange an appointment; Reason: Continuance of care. - Problem is an acute exacerbation. - Symptoms have improved. Historical: - Allergies: No known drug Allergies; - Home Meds: 1. Zoloft 50 mg Oral tab 1 tab once daily 2. Wellbutrin Unknown Oral 3. Klonopin 0.5 mg Oral tab 1 tab 2 times per day - PMHx: Depression; Anxiety; - PSHx: none; - Social history: Smoking status: Patient states former smoker of tobacco. Patient uses alcohol patient/guardian reports recent binge of alcohol consumption. No barriers to communication noted, The patient speaks fluent Kiswahili, Speaks appropriately for age. - Family history: Not pertinent. - : The pt / caregiver states he / she is not on anticoagulants. Home medication list is obtained from the patient. - Exposure Risk Screening:: None identified. Vital Signs: 05/08 23:50 BP 108 / 78; Pulse 68; Resp 22; Temp 99.3(O); Pulse Ox 100% on R/A; Pain 7/10; jmb 05/09 01:09 Weight 45.81 kg / 100.99 lbs (R); Height 5 ft. 4 in. (162.56 cm) (R); jmb 01:09 Weight 45.81 kg / 100.99 lbs (R); [facility] 01:15 BP 117 / 87 (auto/); jmb 01:16 Pulse 84 MON; jmb 01:20 BP 122 / 86 (auto/); jmb 01:20 Pulse 81 MON; Pulse Ox 100% ; jmb 01:25 BP 122 / 88 (auto/); jmb 01:25 Pulse 81 MON; Pulse Ox 100% ; jmb 01:30 BP 144 / 90 (auto/); jmb 01:30 Pulse 72 MON; Pulse Ox 97% ; jmb 01:35 BP 146 / 87 (auto/); jmb 01:35 Pulse 77 MON; Pulse Ox 100% ; jmb 01:40 BP 143 / 91 (auto/); jmb 01:40 Pulse 75 MON; Pulse Ox 100% ; jmb 01:45 BP 138 / 92 (auto/); jmb 01:45 Pulse 83 MON; Pulse Ox 100% ; jmb 01:50 BP 134 / 86 (auto/); jmb 01:50 Pulse 83 MON; Pulse Ox 100% ; jmb 01:55 BP 124 / 88 (auto/); jmb 01:55 Pulse 85 MON; Pulse Ox 100% ; jmb 02:00 BP 123 / 84 (auto/); jmb 02:00 Pulse 85 MON; Pulse Ox 100% ; jmb 02:05 BP 123 / 88 (auto/); jmb 02:05 Pulse 82 MON; Pulse Ox 100% ; jmb 02:10 BP 125 / 90 (auto/); jmb 02:10 Pulse 82 MON; Pulse Ox 100% ; jmb 02:15 BP 125 / 91 (auto/); jmb 02:15 Pulse 87 MON; Pulse Ox 100% ; jmb 02:20 BP 133 / 95 (auto/); jmb 02:20 Pulse 84 MON; Resp 18; Temp 98.2(O); Pulse Ox 100% ; Pain 3/10; jmb 01:09 Body Mass Index 17.34 (45.81 kg, 162.56 cm) mlc Procedures: 01:33 Moderate sedation: Pre-procedure assessment: the patient has been NPO 3 hour(s) prior mm11 to arrival, ASA physical classification: I - healthy, no underlying organic disease, Airway assessment: able to hyperextend neck, able to maintain airway, can open mouth without difficulty, Mallampati classification of tongue size: II - faucial pillars and soft palate can be visualized, but uvula is masked by the base of the tongue, Monitoring during procedure: nurse at bedside at all times, patient monitor, continuous pulse oximetry, End Tidal CO2 Medications employed: Ketamine, 45 mg(s), Propofol _ mg? 20 mgs. Post-procedure assessment: the patient is moderately sedated, Complications: none. Total time spent by provider performing sedation 15 minutes. 01:37 Fracture care/splinting:. Joint Reduction: of the left elbow, using traction, mm11 Immobilized with orthoglass posterior splint. Patient tolerated well. Post reduction film - reveals normal alignment. MDM: 00:05 IV Saline Lock ordered. mm11 00:05 morphine 4 mg IVP every 30 minutes; Document pain score/vitals after each dose (Hold if mm11 SBP < 90mmHg) x2 ordered. 00:05 Ondansetron 4 mg IVP once ordered. mm11 00:05 ETOH Ordered. EDMS 00:07 Elbow, (AP\E\Lat) Ordered. EDMS 01:04 NS 0.9% 1000 ml IV at 100 mL/hr continuous ordered. mm11 01:04 Call Respiratory ordered. mm11 01:04 Airway Cart to bedside ordered. mm11 01:04 Continuous Plant Inspector and SaO2 with q 5 minute VS during procedure ordered. mm11 01:04 Initiate continuous wave form capnography monitoring ordered. mm11 01:04 Oxygen at 4L/Min NC or Home dosage ordered. mm11 01:04 Call Respiratory complete. jmb 01:06 Financial registration complete. hs2 01:14 Ketamine (1mg/kg - Peds initial dose) 45 mg IVP once ordered. mm11 01:14 Propofol (PF)(Moderate Sedation, 0.5mg/kg) 20 mg IVP Per protocol; give every 1-2 mm11 minutes until desired level of sedation ordered. 01:17 ETOH Reviewed. mm11 01:30 Elbow, (AP\E\Lat) Ordered. EDMS 02:22 [facility] Payment Agreement was scanned into [employer] and attached to record. [facility] 02:48 HYDROcodone-acetaminophen 4 pack- 5 mg-325 mg 1 packets PO Per package directions; mm11 Dispense with patient. 1 po q4h prn for pain ordered. 08:49 PCR was scanned into [employer] and attached to record. gb 10:46 T-Sheet-- Draft Copy was scanned into [employer] and attached to record. 10:46 [place] Protocol was scanned into [employer] and attached to record. 10:47 Consents was scanned into [employer] and attached to record. gb Administered Medications: 00:34 Drug: morphine 4 mg [morphine 4 mg/mL intravenous cartridge (1 mL)] Route: IVP; Site: [facility] right forearm; 00:34 Drug: Ondansetron 4 mg [ondansetron HCl 2 mg/mL intravenous solution (2 mL)] Route: b IVP; Site: right forearm; 01:12 Drug: NS 0.9% 1000 ml [sodium chloride 0.9 % intravenous solution] Route: IV; Rate: 100 jmb mL/hr; Site: right forearm; 01:23 Drug: Ketamine (1mg/kg - Peds initial dose) 45 mg [ketamine 10 mg/mL injection solution jmb (4.5 mL)] {Note: administered by Dr. Shore.} Route: IVP; Site: right forearm; 01:24 Drug: Propofol (PF)(Moderate Sedation, 0.5mg/kg) 20 mg [propofol (PF) 200 mg/20 mL (10 jmb mg/mL) intravenous emulsion (2 mL)] {Note: administered by Dr. Shore.} Route: IVP; Site: right forearm; 01:49 Drug: morphine 4 mg [morphine 4 mg/mL intravenous cartridge (1 mL)] Route: IVP; Site: [facility] right forearm; 02:55 Drug: HYDROcodone-acetaminophen 4 pack- 1 packets [hydrocodone 5 mg-acetaminophen 325 jmb mg tablet (1 tabs)] {Co-Signature: ko2 (Stephanie Hayes RN).} Route: PO; Signatures: Dispatcher [employer] EDMS Renita Barber, Reg Reg gb Johan Shore DO DO mm11 Antoni Celeste RN RN jmb Hook, Sandra [facility] Jessika Mata, Reg Reg hs2 Stephanie Hayes RN ko2 The chart was reviewed and I authenticate all verbal orders and agree with the evaluation and treatment provided.Attachments: 02:22 [facility] Payment Agreement [facility] 10:46 T-Sheet-- Draft Copy Chart Complete MTDD
[2016-05-14] MEDS ORDERED: ZOLO25TA PO (09:30)
[2016-05-14] MEDS ORDERED: KLON1TAB PO (09:30)
[2016-05-14] MEDS ORDERED: WELLTAB40 PO (09:30)
[2016-05-14] MEDS ORDERED: HYDR-3713 PO (09:30)
== END 2016-05-09 02:58 | disposition home or self-care (01) ==
LOC: M ED 23:32
DX: S52.122A Displaced fracture of head of left radius, initial encounter for closed fracture (principal); F41.9 Anxiety disorder, unspecified; F32.9 Major depressive disorder, single episode, unspecified; Z87.891 Personal history of nicotine dependence; Z79.899 Other long term (current) drug therapy; W01.198A Fall on same level from slipping, tripping and stumbling with subsequent striking against other object, initial encounter; Y92.89 Other specified places as the place of occurrence of the external cause; Y93.01 Activity, walking, marching and hiking; Y99.9 Unspecified external cause status
CPT/HCPCS: 25505; 73070; 93041; 96374; 96375; 96376; 99152; 99285; G0480; J2405

== ENCOUNTER → 2016-05-15 | Day surgery (SDC) | payer OTHER ==
[~2016-05-15] VITALS: Ht 162.6 cm; Wt 46.3 kg
[~2016-05-15] MED LIST: GLYCOPYRROLATE INJ 0.2 MG/ML 2 ML VIAL As Ordered ONE; HYDR-3713 PO; HYDROmorphone HCL 2 MG/ML 1ML VIAL (J1170) As Ordered ONE; KLON1TAB PO; LIDOCAINE 2% INJ 100 MG/5 ML SDV (FOR ANES.) As Ordered ONE; LR 1,000 ML IV SCH; MIDAZOLAM INJ 2 MG/2 ML VIAL (J2250) As Ordered ONE; MORPHINE 2 MG/ML 1ML SYRINGE IV PRN; MORPHINE 4 MG/ML 1ML SYRINGE IV PRN; NEOSTIGMINE 1MG/ML 5 ML SYRINGE (J2710) As Ordered ONE; NORCO, ANEXSIA 5/325MG TABLET (HYDROcodone/ACETAMINOPHEN) PO PRN; ONDANSETRON 4MG/2ML VIAL (J2405) As Ordered ONE; ONDANSETRON 4MG/2ML VIAL (J2405) IV PRN; PERCOCET 5MG/325MG TAB As Ordered ONE; PHENYLephrine HCL 500 MCG/5 ML (100MCG/ML) SYRINGE (J2370) As Ordered ONE; PROPOFOL 200 MG/20 ML VIAL As Ordered ONE; ROCURONIUM BROMIDE 50 MG/5 ML VIAL As Ordered ONE; WELLTAB40 PO; ZOLO25TA PO; ceFAZolin 1GM INJ (J0690) As Ordered ONE; ceFAZolin 1GM INJ (J0690) IR ONE; ceFAZolin SOD 1 GM in D5W MINI-BAG PLUS 50 ML IV ONE; dexameTHASONE 4 MG/ML 1ML VIAL (J1100) As Ordered ONE; fentaNYL 100 MCG/2 ML INJECTION (J3010) As Ordered ONE
[2016-05-15 12:02] LABS: INR 0.97
[2016-05-15] MEDS: fentaNYL 100 MCG/2 ML INJECTION (J3010) IV PRN ×4 (16:05→16:20)
[2016-05-15] MEDS: PERCOCET 5MG/325MG TAB PO PRN ×2 (16:05→16:27)
[2016-05-15 18:50] VITALS: BP 123/83
--- NOTE | 2016-05-16 08:36 | REP ---
LEFT ELBOW, THREE VIEWS: HISTORY: Fracture. Three portable radiographs were obtained with the C-Arm in the operating room. The patient is status post placement of a radial head prosthesis. There is no acute fracture or dislocation. IMPRESSION: The patient is status post radial head prosthesis placement. There is anatomic alignment. Signed by Maury Childers MD 05/18/2016 08:26 A
--- NOTE | 2016-05-16 10:40 | RO ---
DATE OF PROCEDURE: 05/15/2016 PREOPERATIVE DIAGNOSIS: Left elbow fracture dislocation; terrible triad injury. POSTOPERATIVE DIAGNOSIS: Left elbow fracture dislocation; terrible triad injury. PROCEDURE: 1. Left elbow radial head replacement. 2. Left elbow coronoid fracture (open reduction internal fixation with SutureBridge fixation. 3. Repair of lateral ulnar collateral ligament using suture anchors. SURGEON: Dr. Radha Martin RESEARCH DEVELOPMENT MANAGER: ANESTHESIA: General endotracheal tube anesthesia. COMPLICATIONS: None. DESCRIPTION OF PROCEDURE: Antibiotics were given intravenously preoperatively, then successful general endotracheal tube anesthetic was established. Tourniquet placed on the left upper arm, not inflated. Examination under anesthesia revealed a grossly unstable left elbow, basically it subluxed posterior and posterolaterally quite easily. The left upper extremity was then prepped and draped in the usual sterile fashion, then elevated and after appropriate time-out, a longitudinal incision was made, centered over the lateral epicondyle. We exposed the deep fascia and I attempted to develop a plane between the anconeus muscle and the flexor carpi ulnaris, and as I entered that plane, the joint hematoma was evacuated and we were looking directly into the almost humeral articulation in the radial head. The lateral ulnar collateral ligament was avulsed off the lateral intramuscular septum just proximal to the lateral epicondyle with the bone fragments still attached to the anterior fascial structures. Several pieces of the radial head were fished out from within the olecranon fossa as well as anteriorly in the elbow joint, and these were placed on the back table to piece it back together. Clearly this was not a reconstructable situation. I then resected the proximal portion of the radius just at the radial neck. On the back table, I tried to put together the radial head and measured, and estimated that a size 2 or a size 3 would be adequate, probably a size 3. At this point, the anterior capsule of the elbow had been where the small edwar of the coronoid bone was attached to that anterior capsule and thus, you could see where it had been avulsed off the proximal anterior ulna, just distal actually to the majority of the coronoid process. This allowed the elbow to be grossly unstable posteriorly. Thus, I felt it reasonable to repair this capsule back to its anatomic position. I placed a 2-0 FiberWire and a whipstitch in a multiple stitch pattern into the anterior capsule around the fragment of the coronoid, and then I used the ACL guide to place onto the bare spot where this avulsion had occurred within the elbow joint. Then, I made a small incision along the proximal ulna near the posterior aspect of the olecranon and subperiosteally dissected to expose the bone. Then, I drilled such that it exited right at the bare spot where this avulsion had occurred. Then, I used a Hewson suture passer to pass up through that drill hole and passed one limb of the FiberWire back down through exiting posteriorly and then I made a second hole and passed in a similar fashion into the bare spot on the proximal ulna and then passed the remaining suture limb of the FiberWire, and I did not tie that at this point. I then used the broach from the [employer] radial head system and broached the proximal radius, making sure it was aligned with the radial styloid and advanced up to a size #2 broach. The #2 trial was placed and then I trialed with both a #2 and a #3 head and got fluoroscopic imaging in the AP and lateral planes. It appeared that the #3 gave the best fit. There was no excessive distraction noted medially at the ulnar humeral articulation based on the fluoroscopic imaging and thus I felt it was not overstuffed, clearly much more stable with a size #3. Thus, this was the chosen implant. I then, at this point, copiously irrigated out the radial canal as well as the joint, which I did several times throughout this operation and then I implanted the real #2 stem. And then as I was ready to place the #3 head, it was noteworthy that the #2 real stem did not have adequate rotational stability and thus I felt it best to cement. Thus, at this point, I called for the cement and we mixed a bowel of cement and placed it into a small syringe and after drying out the radial canal, placed a small amount of cement into the proximal radial opening and then implanted the stem and then the #3 radial head and then reduced the elbow. At this point, I then tied the two FiberWire sutures over the bony bridge on the olecranon to bring the capsule back down into its anatomic position. At this point, fluoroscopic imaging in the AP, lateral and oblique planes showed that the elbow was well reduced, implant in good position. I then repaired the lateral collateral ligament using a G2 Mite[employer] suture anchor and secured the bony fragment in a horizontal mattress fashion back down to its anatomic position and then over sewed that whole area side to side with anterior and posterior fascial rent, providing good, secure fixation. I then closed the remaining arthrotomy with the remnant of the G2 suture and then irrigated, closed the deep subdermal tissues with interrupted #2-0 PDS suture, skin was closed with delmy as was the posterior wound. All the wounds were then covered with Adaptic and a dry sterile bulky dressing. The tourniquet had been released after about an hour's worth of tourniquet time earlier on in the procedure. A posterior plaster splint was then applied and she was placed into a sling and then awakened from general endotracheal tube anesthesia after having tolerated the procedure well, transferred to recovery room in stable condition. There were no intraoperative complications.
== END | disposition home or self-care (01) ==
LOC: M SDC 10:46
PROVIDERS: ATTEND Orthopaedic Surgery
DX: S52.042A Displaced fracture of coronoid process of left ulna, initial encounter for closed fracture (principal); S52.122A Displaced fracture of head of left radius, initial encounter for closed fracture; W19.XXXA Unspecified fall, initial encounter; Y92.89 Other specified places as the place of occurrence of the external cause; Y99.9 Unspecified external cause status; F32.9 Major depressive disorder, single episode, unspecified; F41.9 Anxiety disorder, unspecified; Z79.899 Other long term (current) drug therapy; Z87.891 Personal history of nicotine dependence; Y93.9 Activity, unspecified
CPT/HCPCS: 24343; 24666; 24685; 36415; 73080; 85610; 85730; 88304; 88311; C1713; C1776; J0690; J1100; J1170; J2250; J2370; J2405; J2710; J3010

== ENCOUNTER → 2016-05-20 | Outpatient (REF) | payer OTHER ==
[~2016-05-20] MED LIST changes: -GLYCOPYRROLATE INJ 0.2 MG/ML 2 ML VIAL As Ordered ONE; -HYDROmorphone HCL 2 MG/ML 1ML VIAL (J1170) As Ordered ONE; -LIDOCAINE 2% INJ 100 MG/5 ML SDV (FOR ANES.) As Ordered ONE; -LR 1,000 ML IV SCH; -MIDAZOLAM INJ 2 MG/2 ML VIAL (J2250) As Ordered ONE; -MORPHINE 2 MG/ML 1ML SYRINGE IV PRN; -MORPHINE 4 MG/ML 1ML SYRINGE IV PRN; -NEOSTIGMINE 1MG/ML 5 ML SYRINGE (J2710) As Ordered ONE; -NORCO, ANEXSIA 5/325MG TABLET (HYDROcodone/ACETAMINOPHEN) PO PRN; -ONDANSETRON 4MG/2ML VIAL (J2405) As Ordered ONE; -ONDANSETRON 4MG/2ML VIAL (J2405) IV PRN; -PERCOCET 5MG/325MG TAB As Ordered ONE; -PHENYLephrine HCL 500 MCG/5 ML (100MCG/ML) SYRINGE (J2370) As Ordered ONE; -PROPOFOL 200 MG/20 ML VIAL As Ordered ONE; -ROCURONIUM BROMIDE 50 MG/5 ML VIAL As Ordered ONE; -ceFAZolin 1GM INJ (J0690) As Ordered ONE; -ceFAZolin 1GM INJ (J0690) IR ONE; -ceFAZolin SOD 1 GM in D5W MINI-BAG PLUS 50 ML IV ONE; -dexameTHASONE 4 MG/ML 1ML VIAL (J1100) As Ordered ONE; -fentaNYL 100 MCG/2 ML INJECTION (J3010) As Ordered ONE
[2016-05-20 14:26] LABS: CONTROL LINE INT CTR LINE PRESENT; TRICYCLIC ANTIDEPRESS UR REFL NEGATIVE (NEGATIVE)
[2016-05-23 14:11] LABS: GC Carboxy THC >300 ng/mL (Cutoff=10)
== END ==
LOC: M SFHCPLAZ 13:10
PROVIDERS: ATTEND Internal Medicine Infectious Disease
DX: B18.2 Chronic viral hepatitis C (principal)
CPT/HCPCS: 80306; G0480

== ENCOUNTER → 2016-08-11 | Outpatient (REF) | payer OTHER ==
[2016-08-11 16:10] LABS: BASO % 0.4 % (0.0-1.0); EOS # 0.1 K/mm3 (0.0-0.50); EOS % 1.9 % (0.0-3.0); LARGE UNSTAINED CELL # 0.2 K/mm3 (0.0-0.4); LARGE UNSTAINED CELL % 2.2 % (0.0-4.0); LYMPH # 2.7 K/mm3 (1.5-4.5); LYMPH % 32.8 % (24.0-44.0); MEAN CORPUSCULAR HEMOGLOBIN 32.9 pg (27.0-33.0); MEAN CORPUSCULAR VOLUME 96.8 fl (80.0-96.0); MONO # 0.4 K/mm3 (0.0-0.8); MONO % 5.5 % (0.0-5.0); NEUTROPHILS # 4.3 K/mm3 (1.8-7.7); NEUTROPHILS % 57.2 % (36.0-66.0); PLATELET COUNT, AUTOMATED 232 k/mm3 (150-450); RED CELL DISTRIBUTION WIDTH 11.9 % (11.5-14.5); WHITE BLOOD COUNT 7.6 K/mm3 (4.0-10.0)
[2016-08-11 16:30] LABS: ALKALINE PHOSPHATASE 64 U/L (45-117); ALT/SGPT 18 U/L (12-78); ANION GAP 7 MEQ/L (8-16); AST/SGOT 18 U/L (15-37); BILIRUBIN,TOTAL 0.4 MG/DL (0.2-1.0); BLOOD UREA NITROGEN 12 MG/DL (7-18); CALCIUM LEVEL 9.2 MG/DL (8.5-10.1); CARBON DIOXIDE LEVEL 30 MEQ/L (21-32); CHLORIDE LEVEL 104 MEQ/L (98-107); CREATININE FOR GFR 0.79 MG/DL (0.55-1.02); GLOMERULAR FILTRATION RATE > 60.0 (>51); GLUCOSE, FASTING 71 MG/DL (70-105); POTASSIUM SERUM 4.3 MEQ/L (3.5-5.1); SODIUM LEVEL 141 MEQ/L (136-145)
== END ==
LOC: M SFHCPLAZ 12:48
PROVIDERS: ATTEND Internal Medicine Infectious Disease
DX: B18.2 Chronic viral hepatitis C (principal)

== ENCOUNTER → 2016-11-30 | Outpatient (REF) | payer OTHER | LOC: M SFHCWAGY 18:53 | PROVIDERS: ATTEND Nurse Practitioner Family | DX: Z12.4 Encounter for screening for malignant neoplasm of cervix (principal) ==

== ENCOUNTER → 2016-12-25 | Outpatient (REF) | payer OTHER ==
[2016-12-25 13:55] LABS: BASO % 0.4 % (0.0-1.0); EOS # 0.1 10^3/uL (0.0-0.50); IMMATURE GRANULOCYTE % 0.3 % (0-0); LYMPH # 1.6 10^3/uL (1.5-4.5); LYMPH % 20.6 % (24.0-44.0); MEAN CORPUSCULAR HEMOGLOBIN 32.4 pg (27.0-33.0); MEAN CORPUSCULAR HGB CONC 33.2 g/dl (32.0-36.5); MEAN CORPUSCULAR VOLUME 97.6 fl (80.0-96.0); MONO # 0.5 10^3/uL (0.0-0.8); MONO % 6.6 % (0.0-5.0); NEUTROPHILS # 5.7 10^3/uL (1.8-7.7); NEUTROPHILS % 71.1 % (36.0-66.0); PLATELET COUNT, AUTOMATED 160 10^3/uL (150-450)
[2016-12-25 14:54] LABS: ALBUMIN 3.6 GM/DL (3.2-5.2); ALBUMIN/GLOBULIN RATIO 1.06 (1.00-1.93); ALKALINE PHOSPHATASE 52 U/L (45-117); ALT/SGPT 17 U/L (12-78); ANION GAP 6 MEQ/L (8-16); AST/SGOT 11 U/L (15-37); BILIRUBIN,TOTAL 0.3 MG/DL (0.2-1.0); BLOOD UREA NITROGEN 15 MG/DL (7-18); CALCIUM LEVEL 8.5 MG/DL (8.5-10.1); CARBON DIOXIDE LEVEL 32 MEQ/L (21-32); CHLORIDE LEVEL 102 MEQ/L (98-107); CREATININE FOR GFR 0.85 MG/DL (0.55-1.02); GLOMERULAR FILTRATION RATE > 60.0 (>51); GLUCOSE, FASTING 46 MG/DL (70-105); POTASSIUM SERUM 4.1 MEQ/L (3.5-5.1); SODIUM LEVEL 140 MEQ/L (136-145)
[2016-12-29 08:06] LABS: HEPATITIS C QUANTITATION HCV Not Detected IU/mL (.)
== END ==
LOC: M SFHCPLAZ 11:12
PROVIDERS: ATTEND Internal Medicine Infectious Disease
DX: B18.2 Chronic viral hepatitis C (principal)